=== PATIENT | female | born 2005 | race Caucasian/White ===

== ENCOUNTER → 2023-04-24 09:11 | Outpatient (CLI) | payer OTHER, SELFPAY ==
--- NOTE | ~2023-04-24 | US_ITS ---
Pelvic ultrasound. Clinical History: Pelvic pain Technique: Realtime transabdominal scanning of the pelvis was performed. Color flow Doppler and Doppl er spectral analysis were performed. Findings: The uterus is anteverted, and measures 7.7 x 3.0 x 4.3 cm. The endometrial stripe has a th ickness of 4 mm. No focal mass is identified. The right ovary measures 2.2 x 2.2 x 2.5 cm. No significant right ovarian or adnexal mass is seen. The left ovary measures 2.5 x 3.1 x 2.3 cm. No significant left ovarian or adnexal mass is seen. Vascular flow present in both ovaries on Doppler spectral analysis. There is no evidence of free fluid in the cul de sac. Impression: Unremarkable pelvic ultrasound. Reviewed, dictated and finalized at [facility]. IT CORRESPONDENCE CLERK Impression: Unremarkable pelvic ultrasound.
== END ==
PROVIDERS: PCP Advanced Practice Midwife; Visit Provider Advanced Practice Midwife
DX: R10.2 Pelvic and perineal pain (principal); N94.6 Dysmenorrhea, unspecified
CPT/HCPCS: 76856